=== PATIENT | male | born 2000 | race Hispanic/Latino ===

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

== ENCOUNTER 2018-05-09 18:33 | Emergency (ER) | payer OTHER, SELFPAY ==
[2018-05-09] MEDS ORDERED: Ibuprofen 200 MG TAB ONE (19:03)
--- NOTE | 2018-05-09 22:20 | RAD ---
LEFT HIP 05/09/18 Comparison is made with a 10/13/11 abdomen film that shows the hips. There is flattening and deformity of the left femoral head consistent with the clinical history of Le fs-[id number] disease. No acute fractures were seen. There is no benjamin dislocation. The joint spac e is normal in width. The adjacent pubic ring appears intact. IMPRESSION: Chronic flattening of the femoral head but no acute bony finding. POS: HOME
--- NOTE | 2018-05-09 22:23 | RAD ---
PELVIS ONE VIEW 05/09/18 The sensitivity of the study is slightly reduced. No gross fractures were evident. There is flattenin g of the left femoral head consistent with the clinical history of Perthes disease. All bony structur es appeared intact. The pubic rings appear intact. The symphysis shows no widening of off-set. The SI joints are not seen well but seem reasonably symmetric. 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 No acute traumatic findings. Should pain persist beyond that which is expected, one might consider an MRI to look for more subtle bony issues. POS: HOME
== END 2018-05-09 19:54 | disposition home or self-care (01) ==
LOC: BURERS 18:33
DX: S70.01XA Contusion of right hip, initial encounter (principal); W19.XXXA Unspecified fall, initial encounter
CPT/HCPCS: 72170

== ENCOUNTER 2019-06-26 22:02 | Emergency (ER) | payer SELFPAY ==
[2019-06-26] MEDS ORDERED: Amoxicillin/Potassium Clav 875 MG TAB ONE (23:21)
== END 2019-06-26 23:35 | disposition home or self-care (01) ==
LOC: BURERS 22:02
DX: H66.93 Otitis media, unspecified, bilateral (principal); J06.9 Acute upper respiratory infection, unspecified; F84.0 Autistic disorder
CPT/HCPCS: 87804; 99283

== ENCOUNTER 2022-01-12 08:12 | Emergency (ER) | payer OTHER, SELFPAY | END 2022-01-12 09:28 | disposition home or self-care (01) | LOC: BURERS 08:12 | DX: H10.11 Acute atopic conjunctivitis, right eye (principal) | CPT/HCPCS: 99283 ==

== ENCOUNTER 2022-01-14 20:16 | Emergency (ER) | payer OTHER ==
[2022-01-14] MEDS ORDERED: Ondansetron ODT 4 MG TAB ONE (20:38)
== END 2022-01-14 20:50 | disposition home or self-care (01) ==
LOC: BURERS 20:16
DX: R11.2 Nausea with vomiting, unspecified (principal)
CPT/HCPCS: 99283; Q0162

== ENCOUNTER 2022-01-23 17:25 | Emergency (ER) | payer OTHER ==
[2022-01-23] MEDS ORDERED: predniSONE 20 MG TAB ONE (19:00)
== END 2022-01-23 19:07 | disposition home or self-care (01) ==
LOC: BURERS 17:25
DX: J02.9 Acute pharyngitis, unspecified (principal); F84.0 Autistic disorder; Z20.822 Contact with and (suspected) exposure to COVID-19
CPT/HCPCS: 87081; 87430; 87804; 99283; J7512; U0003; U0005

== ENCOUNTER 2022-04-14 11:21 | Emergency (ER) | payer OTHER ==
[2022-04-14] MEDS ORDERED: Ibuprofen 200 MG TAB ONE (11:43)
== END 2022-04-14 12:26 | disposition home or self-care (01) ==
LOC: BURERS 11:21
DX: J02.9 Acute pharyngitis, unspecified (principal)
CPT/HCPCS: 87081; 87430; 99283

== ENCOUNTER 2022-07-15 21:55 | Emergency (ER) | payer OTHER ==
[2022-07-15] MEDS ORDERED: Ibuprofen 200 MG TAB ONE (22:33)
[2022-07-15] MEDS ORDERED: traMADol HCl 50 MG TAB ONE (22:33)
== END 2022-07-15 23:29 | disposition home or self-care (01) ==
LOC: BURERS 21:55
DX: S00.03XA Contusion of scalp, initial encounter (principal); W22.8XXA Striking against or struck by other objects, initial encounter
CPT/HCPCS: 99283